=== PATIENT | female | born 1970 | race Caucasian/White ===

== ENCOUNTER 2017-08-22 08:40 | Outpatient (CLI) | payer BC ==
--- NOTE | 2017-08-23 17:07 | Mammography Report ---
DIGITAL SCREENING MAMMOGRAM: 08/22/2017 CLINICAL INDICATION: A 47-year-old nulliparous patient, for screening. COMPARISON: 05/2014. TECHNIQUE: Routine CC and MLO projections were obtained of the breasts. FINDINGS: Scattered fibroglandular tissue is present within the breasts. There are no dominant vladimir s, suspicious microcalcifications, or secondary signs of malignancy. In comparison to the previous st udies, there are no significant changes. ASSESSMENT: NO MAMMOGRAPHIC EVIDENCE OF MALIGNANCY. NO SIGNIFICANT INTERVAL CHANGES. RECOMMENDATION: Screening mammography is recommended annually. BIRADS category 1 - negative. STANDARD QUALIFYING STATEMENTS 1. This examination was reviewed with the aid of Computed-Aided Detection (CAD). 2. A negative or benign imaging report should not delay biopsy if clinically suspicious findings are present. Consider surgical consultation if warranted. More than 5% of cancers are not identified by i maging. 3. Dense breasts may obscure an underlying neoplasm. JOB #: [id number] EXT JOB #:[id number]
== END 2017-08-22 08:41 | disposition home or self-care (01) ==
LOC: DI 08:40
PROVIDERS: ATTEND Specialist
DX: Z12.31 Encounter for screening mammogram for malignant neoplasm of breast (principal)
CPT/HCPCS: 77067

== ENCOUNTER 2018-11-28 08:35 | Outpatient (CLI) | payer OTHER ==
--- NOTE | 2018-11-28 09:59 | MRI Report ---
Reason: PULSATILE TINNITUS Procedure Date: 11/28/2018 Accession Number: [id number] / [id number] Procedure: MRI - Angio Brain W/O (MRA) CPT Code: FULL RESULT: EXAM MRA BRAIN EXAM DATE: 11/28/2018 09:12 AM. CLINICAL HISTORY: Pulsatile tinnitus. COMPARISON: None. TECHNIQUE: Multiplanar, multisequence MRA sequences of the brain were performed. Other: None. Post-processing: Multiplanar 3D MIP reconstructions. IV Contrast: None. FINDINGS: Unremarkable appearance of the intradural vertebral arteries, basilar artery and visualized portions of the posterior cerebral arteries. Patent grossly symmetric distal internal carotid arteries without evidence for flow-limiting stenosis. Patent anterior communicating artery and right posterior communicating artery. No evidence for proximal flow-limiting stenosis, occlusion or filling defect of the anterior or middle cerebral arteries. No evidence for [place] aneurysm, intracranial high flow vascular malformation or abnormal arterialization of the major dural venous sinuses in the region of the posterior fossa. IMPRESSION: Unremarkable screening [place] MRA. No evidence for aneurysm or stenosis. Additional evaluation of pulsatile tinnitus could include MRI of the brain without and with contrast. If tinnitus is "objective" then additional imaging with a catheter cerebral angiography may also be considered. RADIA
== END 2018-11-28 08:36 | disposition home or self-care (01) ==
LOC: DI 08:35
PROVIDERS: ATTEND Otolaryngology
DX: H93.11 Tinnitus, right ear (principal)
CPT/HCPCS: 70544

== ENCOUNTER 2019-01-17 17:49 | Outpatient (CLI) | payer OTHER ==
--- NOTE | 2019-01-17 19:51 | MRI Report ---
Reason: TINNITUS, HEARING LOSS Procedure Date: 01/17/2019 Accession Number: [id number] / [id number] Procedure: MRI - Brain W/O CPT Code: FULL RESULT: EXAM: MRI BRAIN WITHOUT CONTRAST EXAM DATE: 01/17/2019 06:32 PM. CLINICAL HISTORY: TINNITUS, HEARING LOSS. COMPARISON: CT scan of the head without contrast 05/31/2010. TECHNIQUE: Multiplanar, multisequence T1-weighted and fluid-sensitive MR sequences of the brain were performed. Sequences optimized for routine evaluation. Other: None. IV Contrast: None. FINDINGS: The diffusion-weighted images are normal. There is no evidence of acute or subacute cerebral infarction. The T2 axial FLAIR images are normal. Cerebral volume and ventricular size are normal. The T2* sequence is normal. There is no evidence of subacute or chronic hemorrhage. The corpus callosum is of normal size and configuration. The pituitary and sella are normal. The craniocervical junction is normal. The bilateral parotid spaces exhibit normal signal intensity. There is a normal appearance of the nerve exit zone, cisternal and internal auditory canal segments of the bilateral 7th and 8th cranial nerves. There is a normal appearance of the nerve exit zone and cisternal segments of the bilateral trigeminal nerve and Meckel's cave. There are normal bony caps demonstrated over the bilateral superior semicircular canals. There is no evidence of dehiscence. IMPRESSION: 1. Normal brain MRI. There is no evidence of acute or subacute cerebral infarction, significant white matter disease, or evidence of mass. 2. There is a normal appearance of the course of the bilateral fifth, seventh, and eighth cranial nerves. There is no cerebellopontine angle mass or internal auditory canal mass or evidence of superior semicircular canal dehiscence.
== END 2019-01-17 17:50 | disposition home or self-care (01) ==
LOC: DI 17:49
PROVIDERS: ATTEND Otolaryngology
DX: H93.11 Tinnitus, right ear (principal); H91.90 Unspecified hearing loss, unspecified ear
CPT/HCPCS: 70551

== ENCOUNTER 2019-02-25 08:16 | Outpatient (CLI) | payer OTHER ==
--- NOTE | 2019-02-27 08:19 | Mammography Report ---
Reason: SCREENING MAMMO Procedure Date: 02/25/2019 Accession Number: [id number] / [id number] Procedure: LAURYN - Screening Mammo w/Puma CPT Code: FULL RESULT: EXAM: Screening Mammo w/Puma DATE: 02/25/2019 9:01 AM CLINICAL HISTORY: Routine screening. No reported personal or family history of breast cancer. TECHNIQUE: (B) - Bilateral Bilateral CC and MLO views were obtained. COMPARISON: 08/22/2017, 06/16/2014. PARENCHYMAL PATTERN: (A) - The breasts demonstrate scattered fibroglandular densities bilaterally. FINDINGS: Bilateral breasts: There are no suspicious masses, calcifications, or areas of distortion. IMPRESSION: Negative examination. BI-RADS category1 RECOMMENDATION: (ANNUAL) - Recommend routine annual screening mammography. BI-RADS CATEGORY: (1) - Negative STANDARD QUALIFYING STATEMENTS: 1. This examination was not reviewed with the aid of Computer-Aided Detection (CAD). 2. A negative or benign imaging report should not preclude biopsy if clinically suspicious findings are present. 3. Dense breasts may obscure an underlying neoplasm. 4. This examination was reviewed with the aid of 3D breast imaging (tomosynthesis).
== END 2019-02-25 08:17 | disposition home or self-care (01) ==
LOC: DI 08:16
DX: Z12.31 Encounter for screening mammogram for malignant neoplasm of breast (principal)
CPT/HCPCS: 77063; 77067

== ENCOUNTER 2019-03-09 08:14 | Outpatient (CLI) | payer OTHER ==
--- NOTE | 2019-03-10 19:40 | CT Report ---
Reason: PULSATILE TINNITUS Procedure Date: 03/09/2019 Accession Number: [id number] / [id number] Procedure: CT - IAC'S WO CPT Code: 44515 FULL RESULT: EXAM: CT TEMPORAL BONES WITHOUT CONTRAST. COMPARISON: Brain MRI, 01/17/2019. CLINICAL HISTORY: Pulsatile tinnitus. TECHNIQUE: Axial CT images were obtained through the temporal bones without contrast. Multiplanar reconstructions are created from source data. In accordance with CT protocol optimization, one or more of the following dose reduction techniques were utilized for this exam: automated exposure control, adjustment of mA and/or KV based on patient size, or use of iterative reconstructive technique. FINDINGS: Right temporal bone: Right internal carotid artery follows the usual course. Middle ear is clear. Mastoids are clear. Ossicular chain is intact. A inner ear anatomy is conventional. No pathologic enlargement of the vestibular or cochlear aqueducts. IAC is normal. No petrous apex mass. Jugular foramen is unremarkable. No mass is identified. Left temporal bone: Middle ear is clear. Mastoids are clear. Ossicular chain is intact. Inner ear anatomy is conventional. No pathologic enlargement of the vestibular or cochlear aqueducts. IAC is of normal size and shape. Left internal carotid artery follows expected course. Left jugular foramen is unremarkable. No lytic or blastic bone lesions are identified otherwise. Paranasal sinuses are relatively unremarkable. Temporomandibular nodes are normally located. Zygomatic arches are intact. No nasopharyngeal mass. IMPRESSION: Normal temporal bones.
== END 2019-03-09 08:15 | disposition home or self-care (01) ==
LOC: DI 08:14
PROVIDERS: ATTEND Student in an Organized Health Care Education/Training Program
DX: H93.A9 Pulsatile tinnitus, unspecified ear (principal)
CPT/HCPCS: 70480

== ENCOUNTER 2020-04-28 11:22 | Outpatient (CLI) | payer OTHER ==
--- NOTE | 2020-05-04 09:47 | Mammography Report ---
BILATERAL DIGITAL SCREENING MAMMOGRAM 3D/2D WITH CAD: 04/28/2020 CLINICAL: Routine screening. Comparison is made to exams dated: 02/25/2019 mammogram, 08/22/2017 mammogram, and 06/16/2014 mammogram - Merged with [facility]. The tissue of both breasts is heterogeneously dense. This may lower the sensitivity of mammography. Current study was also evaluated with a Computer Aided Detection (CAD) system. No significant masses, calcifications, or other findings are seen in either breast. There has been no significant interval change. IMPRESSION: NEGATIVE There is no mammographic evidence of malignancy. A 1 year screening mammogram is recommended. This exam was interpreted at Station ID: [id number]. NOTE: For mammograms, a report in lay terms will be sent to the patient. Approximately 15% of breast malignancies will not be visualized mammographically. In the management of a palpable breast mass, a negative mammogram must not discourage biopsy of a clinically suspicious lesion. Electronically Signed By: Helder Mobley M.D. dddonte/[email or web address]:05/01/2020 16:59:45 ACR BI-RADS Category 1: Negative 3341F PARENCHYMAL PATTERN: (D) - The breast(s) demonstrate(s) heterogeneously dense fibroglandular nisa gusman. BI-RADS CATEGORY: (1) - 1 RECOMMENDATION: (ANNUAL) - Recommend routine annual screening mammography. [id number] 1 year screening LATERALITY: (B)
== END 2020-04-28 11:23 | disposition home or self-care (01) ==
LOC: DI 11:22
DX: Z12.31 Encounter for screening mammogram for malignant neoplasm of breast (principal)
CPT/HCPCS: 77063; 77067

== ENCOUNTER 2021-05-25 07:26 | Day surgery (SDC) | payer OTHER ==
[2021-05-25] MEDS ORDERED: LACTATED RINGERS 1,000 ML IV ONE (07:53)
[2021-05-25] MEDS ORDERED: fentaNYL 250 MCG/5 ML VIAL ONE (10:11)
[2021-05-25] MEDS ORDERED: MIDAZOLAM 2 MG/2 ML VIAL ONE (10:11)
[2021-05-25 11:14] VITALS: BP 96/67
== END 2021-05-25 07:27 | disposition home or self-care (01) ==
LOC: SDS 07:26
PROVIDERS: ATTEND Surgery
DX: Z12.11 Encounter for screening for malignant neoplasm of colon (principal); K64.4 Residual hemorrhoidal skin tags; K64.8 Other hemorrhoids; K57.30 Diverticulosis of large intestine without perforation or abscess without bleeding; Z80.0 Family history of malignant neoplasm of digestive organs
CPT/HCPCS: 45378; J3010; J7120

== ENCOUNTER 2023-05-24 11:17 | Outpatient (CLI) | payer OTHER ==
--- NOTE | 2023-05-25 09:25 | Mammography Report ---
BILATERAL DIGITAL SCREENING MAMMOGRAM 3D/2D: 05/24/2023 CLINICAL: Routine screening. Comparison is made to exams dated: 05/02/2022 mammogram, 04/28/2020 mammogram, 02/25/2019 mammogram, 2016 mammogram, and 06/16/2014 mammogram - [facility]. Both breasts are almost entirely fatty (category a/<25% glandular tissue). No significant masses, calcifications, or other findings are seen in either breast. There has been no significant interval change. IMPRESSION: NEGATIVE There is no mammographic evidence of malignancy. A 1 year screening mammogram is recommended. Based on the Tyrer Cuzick model (a risk assessment model) the patients lifetime risk is 5.1% and her 10 year risk is 1.3%. According to the ACR, ACS, and NCCN guidelines, an annual breast MRI exam emerson g with mammogram is recommended if the patients lifetime risk is 20% or greater. This exam was interpreted at Station ID: [id number]. NOTE: For mammograms, a report in lay terms will be sent to the patient. Approximately 15% of breast malignancies will not be visualized mammographically. In the management of a palpable breast mass, a negative mammogram must not discourage biopsy of a clinically suspicious lesion. Electronically Signed By: Zach velasquez/suzi:05/24/2023 12:00:47 letter sent: No_Letter ACR BI-RADS Category 1: Negative 3341F PARENCHYMAL PATTERN: (F) - The breast(s) demonstrate(s) diffuse fatty replacement. BI-RADS CATEGORY: (1) - 1 Mammogram [id number] 1 year screening LATERALITY: (B)
== END 2023-05-24 11:18 | disposition home or self-care (01) ==
LOC: DI 11:17
PROVIDERS: ATTEND Nurse Practitioner
DX: Z12.31 Encounter for screening mammogram for malignant neoplasm of breast (principal)

== ENCOUNTER 2024-06-11 11:15 | Outpatient (CLI) | payer OTHER ==
--- NOTE | 2024-06-12 10:59 | Mammography Report ---
BILATERAL DIGITAL SCREENING MAMMOGRAM 3D/2D: 06/11/2024 CLINICAL: Routine screening. Comparison is made to exams dated: 05/24/2023 mammogram, 05/02/2022 mammogram, 04/28/2020 mammogram, 2018 mammogram, 08/22/2017 mammogram, and 06/16/2014 mammogram - [facility]. There are scattered areas of fibroglandular density in both breasts (category b / 25%-50% glandular t issue). No significant masses, calcifications, or other findings are seen in either breast. There has been no significant interval change. IMPRESSION: NEGATIVE There is no mammographic evidence of malignancy. A 1 year screening mammogram is recommended. Based on the Tyrer Cuzick model (a risk assessment model) the patient's lifetime risk is 7.6% and her 10 year risk is 2.2%. According to the ACR, ACS, and NCCN guidelines, an annual breast MRI exam emerson g with mammogram is recommended if the patient's lifetime risk is 20% or greater. This exam was interpreted at Station ID: [id number]. NOTE: For mammograms, a report in lay terms will be sent to the patient. Approximately 15% of breast malignancies will not be visualized mammographically. In the management of a palpable breast mass, a negative mammogram must not discourage biopsy of a clinically suspicious lesion. Electronically Signed By: Brant horne/suzi:06/11/2024 12:12:52 letter sent: No_Letter ACR BI-RADS Category 1: Negative 3341F PARENCHYMAL PATTERN: (A) - The breast(s) demonstrate(s) scattered fibroglandular densities. BI-RADS CATEGORY: (1) - 1 RECOMMENDATION: (ANNUAL) - Recommend routine annual screening mammography. [id number] 1 year screening LATERALITY: (B)
== END 2024-06-11 11:16 | disposition home or self-care (01) ==
LOC: DI 11:15
PROVIDERS: ATTEND Nurse Practitioner
DX: Z12.31 Encounter for screening mammogram for malignant neoplasm of breast (principal); R92.323 Mammographic fibroglandular density, bilateral breasts

== ENCOUNTER 2024-06-18 10:59 | Emergency (ER) | payer OTHER ==
--- NOTE | 2024-06-18 12:01 | ED Physician Documentation ---
PD HPI LOWER EXT INJURY - Stated complaint Stated Complaint: R ANKLE PAIN - Chief complaint Chief Complaint: Ext Problem - Additional information Additional information: 54-year-old female with no real significant past medical history presents emergency department for right ankle pain. Patient says that she did have ligament tears when she was 18 years old of the right ankle that did not require surgery. She said today she was walking she took a misstep and actually inversely rolled her ankle and heard a loud popping sensation to the lateral portion of her malleolus. She is able to ambulate but there is significant pain and swelling. She did not hit her head she is not on blood thinners. PD PAST MEDICAL HISTORY - Past Medical History Past Medical History: No - Past Surgical History Past Surgical History: Yes Ortho: Shoulder arthroplasty - Present Medications Home Medications: Ambulatory Orders Medication Instructions Recorded Confirmed No Known Home Medications 06/18/24 06/18/24 - Allergies Allergies/Adverse Reactions: Allergies Allergy/AdvReac Type Severity Reaction Status Date / Time No Known Drug Allergies Allergy Verified 06/18/24 11:20 - Social History Does the pt smoke?: No Smoking Status: Never smoker Does the pt have substance abuse?: No - Immunizations Immunizations are current?: Yes - POLST Patient has POLST: No PD ED PE NORMAL - Vitals Vital signs reviewed: Yes - General General: Alert and oriented X 3, No acute distress, Well developed/nourished - HEENT HEENT: Atraumatic - Extremities Extremities: Other (Right lower extremity: Tenderness and swelling to the right lateral malleolus able to flex and extend no crepitus or popping does experience significant tenderness with flexion extension to the right lateral malleolus. Achilles intact no tenderness, CMS intact, strong dorsalis pedis pulse) Results - Vitals Vitals: Vital Signs - 24 hr 06/18/24 06/18/24 11:15 13:23 Temperature 36.7 C 36.5 C Heart Rate 57 L 60 Respiratory 18 16 Rate Blood Pressure 145/94 H 130/88 H O2 Saturation 98 100 Oxygen O2 Source Room air - Rads (name of study) Right ankle x-rays Relevant Findings:: Final report received, EMP independent interpretation of test, Other (Avulsion fracture fragment seen at the tip of the lateral malleolus with soft tissue swelling) PD Medical Decision Making - ED course ED course: 54-year-old female presents emergency department for right lateral malleolus pain and tenderness after ground-level fall. X-rays are complete and there appears to be a few small avulsion fracture fragments from the tip of the lateral malleolus. patient placed in a walking boot crutches given to patient she was told to follow-up with Ortho outpatient. She was given Tylenol ibuprofen for pain and discomfort here in the ER all questions answered patient safe for discharge return precautions given. 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 COMPARISON: None. FINDINGS: Bones: There are a few small avulsion fracture fragments from the tip of the lateral malleolus. Mild underlying degenerative changes also present. Soft tissues: Soft tissue swelling is present, particularly at the lateral aspect. IMPRESSION: Avulsion small fracture fragments seen at the tip of the lateral malleolus. Soft tissue swelling is present. Reviewed by: Brant Stratton MD on 06/18/2024 12:33 PM PDT Forms: PCP List Discharge Date/Time: 06/18/24 13:23
--- NOTE | 2024-06-18 12:35 | XRAY Report ---
PROCEDURE: Ankle 3+V RT INDICATIONS: fall and trip over curb TECHNIQUE: 3 views of the ankle were acquired. COMPARISON: None. FINDINGS: Bones: There are a few small avulsion fracture fragments from the tip of the lateral malleolus. Mild underly ing degenerative changes also present. Soft tissues: Soft tissue swelling is present, particularly at the lateral aspect. IMPRESSION: Avulsion small fracture fragments seen at the tip of the lateral malleolus. Soft tissue swelling is p resent. Reviewed by: Brant Stratton MD on 06/18/2024 12:33 PM PDT Approved by: Brant Stratton MD on 06/18/2024 12:33 PM PDT Station ID: [id number]
[2024-06-18] MEDS: ACETAMINOPHEN 500 MG TABLET PO STA (13:07)
[2024-06-18] MEDS: KETOROLAC 30 MG/ML VIAL IM STA (13:08)
[2024-06-18 13:38] VITALS: BP 130/88; O2SAT 100
== END 2024-06-18 13:23 | disposition home or self-care (01) ==
LOC: ED 10:59
DX: S82.892A Other fracture of left lower leg, initial encounter for closed fracture (principal); X50.1XXA Overexertion from prolonged static or awkward postures, initial encounter
CPT/HCPCS: 73610; 96372; 99283; A9270

== ENCOUNTER 2024-07-30 09:32 | Outpatient (CLI) | payer OTHER ==
--- NOTE | 2024-07-30 21:13 | XRAY Report ---
PROCEDURE: Ankle 3+V RT INDICATIONS: NONDISPLACED FX LATERAL MALLEOLUS R FIBULA TECHNIQUE: 3 views of the ankle were acquired. COMPARISON: 06/18/2024. FINDINGS: Bones: Lateral malleolus avulsion fracture is not as well appreciated. Ankle mortise is normally al igned. No suspicious bony lesions. Soft tissues: No tibiotalar joint effusion. Achilles tendon appears normal. IMPRESSION: Lateral malleolus avulsion fracture is not as well appreciated, possibly secondary to healing. Reviewed by: Kalpesh Ivan MD on 07/30/2024 9:11 PM PDT Approved by: Kalpesh Ivan MD on 07/30/2024 9:11 PM PDT Station ID: [id number]
== END 2024-07-30 09:33 | disposition home or self-care (01) ==
LOC: DI 09:32
PROVIDERS: ATTEND Orthopaedic Surgery
DX: S82.64XA Nondisplaced fracture of lateral malleolus of right fibula, initial encounter for closed fracture (principal)

== ENCOUNTER 2025-10-14 06:16 | Observation (INO) ==
--- OUTSIDE RECORDS SUMMARY | 2025-10-14 06:38 | EXTERNAL MEDICAL SUMMARY RPT | Continuity of Care Document ---
Author Organization [facility] Address [address] [place] [id number] Phone Problems date description facility 2025-07-16 11:07 Pain in right ankle and joints of right foot [facility] 2025-07-18 11:11 Other specified cond itions associated with female genital organs and menstrual cycle [facility] 2025-07-18 12:23 Other specified cond itions associated with female genital organs and menstrual cycle [facility] 2025-07-21 08:08 Other specified cond itions associated with female genital organs and menstrual cycle [facility] 2025-07-21 08:08 Other specified pers onal risk factors, not elsewhere classified [email or web address] 2025-07-31 15:05 Other specified cond itions associated with female genital organs and menstrual cycle [facility] 2025-07-31 15:06 Other specified cond itions associated with female genital organs and menstrual cycle [facility] 2025-08-06 09:02 Other specified cond itions associated with female genital organs and menstrual cycle [facility] 2025-08-07 00:02 Other specified cond itions associated with female genital organs and menstrual cycle [facility] 2025-09-04 09:58 Other specified cond itions associated with female genital organs and menstrual cycle [email or web address] 2025-09-04 09:58 Encounter for genera l adult medical examination without abnormal findings [facility] 2025-09-04 09:58 Encounter for screen ing mammogram for malignant neoplasm of breast [email or web address] 2025-09-04 09:58 Encounter for other screening for malignant neoplasm of breast [email or web address] 2025-09-04 09:58 Encounter for screening for nut ritional disorder [facility] 2025-09-05 04:38 Encounter for screen ing mammogram for malignant neoplasm of breast [email or web address] 2025-09-05 04:38 Encounter for other screening for malignant neoplasm of breast [email or web address] 2025-09-08 09:34 Encounter for screen ing mammogram for malignant neoplasm of breast [facility] 2025-09-08 09:34 Encounter for other screening for malignant neoplasm of breast [facility] 2025-09-10 00:04 Other specified cond itions associated with female genital organs and menstrual cycle [facility] 2025-09-10 00:04 Encounter for genera l adult medical examination without abnormal findings [email or web address] 2025-09-10 00:04 Encounter for screening for nut ritional disorder [facility] 2025-09-10 07:22 Encounter for genera l adult medical examination without abnormal findings [facility] 2025-09-12 23:14 Encounter for antibody response examination [facility] 2025-09-13 00:04 Encounter for antibody response examination [facility] 2025-09-16 10:44 Encounter for screen ing mammogram for malignant neoplasm of breast [facility] 2025-09-16 10:44 Encounter for other screening for malignant neoplasm of breast [facility] 2025-09-17 08:01 Encounter for antibody response examination [facility] 2025-10-06 07:52 Encounter for antibody response examination [facility] 2025-10-06 07:53 Encounter for antibody response examination [facility] Results/Labs test date facility value unit notes Result panel 1 NUCLEATED RED BLOOD CELLS AUTO 2025-09-09 10:03 [facility] 0.0 /100wbc (missing) NRBC ABSOLUTE COUNT (AUTO) 2025-09-09 10:03 [facility] 0.00 x10 3/ul (missing) BASOPHILS # (AUTO) 2025-09-09 10:03 [facility] 0.1 10 3/ul (missing) EOSINOPHILS # (AUTO) 2025-09-09 10:03 [facility] 0.1 10 3/ul (missing) BILIRUBIN,TOTAL 2025-09-09 10:03 [facility] 0.6 mg/dl As of May 2023 testing method has changed, this may include reference ranges. MONOCYTES # (AUTO) 2025-09-09 10:03 [facility] 0.8 10 3/ul (missing) CREATININE 2025-09-09 10:03 [facility] 0.8 mg/dl As of May 2023 testing method has changed, this may include reference ranges. ALBUMIN/GLOBULIN RATIO 2025-09-09 10:03 [facility] 1.5 (missing) (missing) NEUTROPHILS # (AUTO) 2025-09-09 10:03 [facility] 1.5 10 3/ul (missing) LYMPHOCYTES # (AUTO) 2025-09-09 10:03 [facility] 1.6 10 3/ul (missing) LDL/HDL RATIO 2025-09-09 10:03 [facility] 1.9 (missing) (missing) BUN - BLOOD UREA NITROGEN 2025-09-09 10:03 [facility] 10 mg/dl As of May 2023 testing method has changed, this may include reference ranges. CHLORIDE 2025-09-09 10:03 [facility] 102 mmol/l As of May 2023 testing method has changed, this may include reference ranges. ESTIMATED AVERAGE GLUCOSE 2025-09-09 10:03 [facility] 108 mg/dl (missing) LDL CHOLESTEROL,CALCULATED 2025-09-09 10:03 [facility] 117 mg/dl LDLD REFERENCE RANGE AND CARDIOVASCULAR RISK: <130 mg/dL Desirable 130-159 mg/dL Borderline High Risk >160 mg/dL High Risk MEAN PLATELET VOLUME 2025-09-09 10:03 [facility] 12.2 fl (missing) RED CELL DISTRIBUTION WIDTH 2025-09-09 10:03 [facility] 12.6 % (missing) HGB - HEMOGLOBIN 2025-09-09 10:03 [facility] 13.6 g/dl (missing) SODIUM 2025-09-09 10:03 [facility] 138 mmol/l Unknown VLDL CHOLESTEROL 2025-09-09 10:03 [facility] 16 mg/dl (missing) CHOLESTEROL 2025-09-09 10:03 [facility] 195 mg/dl Total Cholesterol Risk Classification Cholesterol Level Risk Classification <200 mg/dL Desirable 200-239 mg/dL Borderline High >240 mg/dL High As of May 2023 testing method has changed, this may include reference ranges. THYROID STIMULATING HORMONE 2025-09-09 10:03 [facility] 2.32 uiu/ml (missing) ALT ALANINE AMINOTRANSFERASE 2025-09-09 10:03 [facility] 21 iu/l As of May 2023 testing method has changed, this may include reference ranges. VITAMIN D 25-HYDROXY 2025-09-09 10:03 [facility] 21.4 ng/ml Vitamin D deficiency has been defined by the [place] of [employer] and an Endocrine Society practice guideline as a level of serum 25-OH vitamin D less than 20 ng/mL (1,2). The Endocrine Society went on to further define vitamin D insufficiency as a level between 21 and 29 ng/mL (2). 1. IOM ([place] of [employer]). 2010. Dietary reference intakes for calcium and D. [place]: The National Academies Press. 2. Axel MF, Jose Armando SONI, Elodia KHOURY, et al. Evaluation, treatment, and prevention of vitamin D deficiency: an Endocrine Society clinical practice guideline. JCEM. 2010; 96(7):1911-30. Performed at: - [facility] [id number] Research Associate Professor: Helder Jackson MD, Phone: [phone] PLT - PLATELET COUNT 2025-09-09 10:03 [facility] 232 10 3/ul (missing) MEAN CORPUSCULAR HEMOGLOBIN 2025-09-09 10:03 [facility] 29.3 pg (missing) GLOBULIN 2025-09-09 10:03 [facility] 3.0 g/dl (missing) CHOL/HDL RATIO 2025-09-09 10:03 [facility] 3.1 (missing) NATIONAL CHOLESTEROL GUIDELINE [facility] ([facility]) guidelines for classificaton, testing and management of cholesterol levels in adults over 20 years of age. This new classification creates three categories of risk for coronary heart disease, regardless of age or sex, according to total amd LDL cholesterols levels: Based on total cholesterol level Desirable <200 mg/dl Borderline-high 200-239 mg/dl High >=240 mg/dl Based on cholesterol ratio CHD RISK CHOL/HDL RATIO --- MALE FEMALE 0.5 x Average 3.4 3.3 1.0 x Average 5.0 4.4 2.0 x Average 9.6 7.1 3.0 x Average 13.5 11.0 CARBON DIOXIDE - CO2 2025-09-09 10:03 [facility] 30 mmol/l As of May 2023 testing method has changed, this may include reference ranges. AST ASPARTATE AMINOTRANSFERASE 2025-09-09 10:03 [facility] 32 iu/l As of May 2023 testing method has changed, this may include reference ranges. MEAN CORPUSCULAR HGB CONC 2025-09-09 10:03 [facility] 32.7 g/dl (missing) WHITE BLOOD COUNT 2025-09-09 10:03 [facility] 4.0 x10 3/ul (missing) POTASSIUM 2025-09-09 10:03 [facility] 4.2 mmol/l As of May 2023 testing method has changed, this may include reference ranges. ALBUMIN 2025-09-09 10:03 [facility] 4.5 g/dl As of May 2023 testing method has changed, this may include reference ranges. RED BLOOD COUNT 2025-09-09 10:03 [facility] 4.64 10 6/ul (missing) HCT - HEMATOCRIT 2025-09-09 10:03 [facility] 41.6 % (missing) HEMOGLOBIN A1c% 2025-09-09 10:03 [facility] 5.4 % The [place] Diabetes Association (ADA) has made the following recommendations: Monitoring HbA1c in Diabetic Patients: A1c (NGSP%) Goal <8 Less Stringent Goal <7 General Goal <6.5 More Stringent Goal Diagnosis of Diabetes: A1c (NGSP%) Goal >6.5 Diabetic 5.7-6.4 Pre-Diabetic <5.7 Non-Diabetic ANION GAP 2025-09-09 10:03 [facility] 6.0 (missing) (missing) HDL CHOLESTEROL 2025-09-09 10:03 [facility] 62 mg/dl Coronary Heart Disease Risk Classification HDL Level Risk factor < 40 mg/dL major risk > 60 mg/dL negative risk As of May 2023 testing method has changed, this may include reference ranges. TOTAL PROTEIN 2025-09-09 10:03 [facility] 7.5 g/dl As of May 2023 testing method has changed, this may include reference ranges. ALKALINE PHOSPHATASE 2025-09-09 10:03 [facility] 70 iu/l As of May 2023 testing method has changed, this may include reference ranges. GFR - MDRD 2025-09-09 10:03 [facility] 74 (missing) The IDMS-traceable MDRD Study Equation has been validated extensively in and populations between the ages of 18 and 70 with impaired kidney function (eGFR < 60 mL/min/1.73m2) and has shown good performance for patients with all common causes of kidney disease. Although this equation has not been validated for patients older than 70, an MDRD-derived eGFR may still be a useful tool for providers caring for patients older than 70. References: http://www.nkdep.ni h.gov/lab-evaluatio n/gfr/creatinine-st and ardization, last updated January 2012. TRIGLYCERIDES 2025-09-09 10:03 [facility] 82 mg/dl Unknown Triglyceride Risk Classification <150 mg/dL Normal 150-199 mg/dL Borderline High 200-499 mg/dL High >500 mg/dL Very High As of May 2023 testing method has changed, this may include reference ranges. GLUCOSE 2025-09-09 10:03 [facility] 88 mg/dl As of May 2023 testing method has changed, this may include reference ranges. MEAN CORPUSCULAR VOLUME 2025-09-09 10:03 [facility] 89.7 fl (missing) CALCIUM 2025-09-09 10:03 [facility] 9.9 mg/dl As of May 2023 testing method has changed, this may include reference ranges. Result panel 2 UROBILINOGEN,URINE 2025-09-09 10:18 [facility] 0.2 (NORMAL) e.u./dl (missing) SPECIFIC GRAVITY,URINE 2025-09-09 10:18 [facility] 1.010 (missing) (missing) WBC,URINE 2025-09-09 10:18 [facility] 6-10 /hpf (missing) PH,URINE 2025-09-09 10:18 [facility] 7.0 ph (missing) CLARITY,URINE 2025-09-09 10:18 [facility] CLEAR (missing) (missing) CUL, URINE 2025-09-09 10:18 [facility] CXPCULTURE IN PROGRESS. RESULTS TO FOLLOW. (missing) (missing) BACTERIA,URINE 2025-09-09 10:18 [facility] Few /hpf (missing) UR CULTURE IF IND 2025-09-09 10:18 [facility] INDICATED (missing) (missing) URINE MICROSCOPIC INDICATED? 2025-09-09 10:18 [facility] INDICATED (missing) (missing) LEUKOCYTE ESTERASE, URINE 2025-09-09 10: [facility] MODERATE (missing) (missing) NITRITE,URINE 2025-09-09 10:18 [facility] NEGATIVE (missing) (missing) OCCULT BLOOD,URINE 2025-09-09 10:18 [facility] NEGATIVE (missing) (missing) BILIRUBIN,URINE 2025-09-09 10:18 [facility] NEGATIVE (missing) Bilirubin can be influenced by color interference. Please correlate positive results with clinical presentation GLUCOSE, URINE (UA) 2025-09-09 10:18 [facility] NEGATIVE mg/dl (missing) KETONES,URINE (UA) 2025-09-09 10:18 [facility] NEGATIVE mg/dl (missing) PROTEIN,URINE 2025-09-09 10:18 [facility] NEGATIVE mg/dl (missing) CUL, URINE 2025-09-09 10:18 [facility] NGNo growth (missing) (missing) RBC,URINE 2025-09-09 10:18 [facility] None Seen /hpf (missing) SQUAMOUS EPITHELIAL CELL,UR 2025-09-09 10:18 [facility] RARE Squamous (missing) (missing) COLOR,URINE 2025-09-09 10:18 [facility] YELLOW (missing) URINE RANDOM Result panel 3 HEPATITIS B SURFACE AB QUANT 2025-09-09 11:00 [facility]ending [facility] (missing) (missing) Hepatitis B Surf Ab Quant Result: <3.5 Low mIU/mL Referecnce Interval: Immunity>10 Status of Immunity Anti-HBs Level Inconsistent with Immunity 0.0 - 10.0 Consistent with Immunity >10.0 Performing Labs 01: SE - [facility] [address] [id number] Dir: Helder Jackson MD For inquiries, the physician may contact Branch: [phone] Lab: [phone] Social History date description facility
[2025-10-14] MEDS: HYDROmorphone 1 MG/ML CARPUJECT IVP STA ×2 (06:44→07:55)
[2025-10-14] MEDS: ONDANSETRON 4 MG/2 ML VIAL IVP STA (06:44)
--- NOTE | 2025-10-14 06:57 | ED Physician Documentation ---
History of Present Illness Stated complaint Stated Complaint: ABD PX Chief complaint Chief Complaint: Abd Pain Additonal information Additional information: Patient is a previously healthy 55-year-old female who presents today after she was woken up at about 4 AM due to onset of abdominal pain. She states that the pain has slowly intensified since then and radiates to her back. She describes pain that radiates under bilateral rib margins. She rates her pain as intense, and is nauseous and actively vomiting in the room. She states that she has never had symptoms like this before. Denies previous history of intra-abdominal surgery. She denies any fever, chills, headache, visual changes, chest pain, shortness of breath. She denies any recent bowel movement changes or urination changes. Patient is otherwise limited in conversation secondary to symptoms. Review of Systems Status of ROS: See HPI Meds/Allgy Home Medications Ambulatory Orders Medication Instructions Recorded Confirmed No Known Home Medications 06/18/2409/27 Allergies Allergies Allergy/AdvReac Type Severity Reaction Status Date / Time No Known Drug Allergies Allergy Verified 09/04/25 07:59 PFSH Active Problems All Active Problems (Updated 10/14/25 @ 07:56 by Rocky Lorenzo MD) Pancreatitis (Acute) Antibody response exam (Acute) Encounter for vitamin deficiency screening (Acute) Screening for colorectal cancer (Acute) Nevus (Acute) Family history of early menopause (Acute) Immunization counseling (Acute) Uterine cramping (Acute) Healthy adult on routine physical examination (Acute) Abnormal auditory perception, unspecified (Acute) Headache (Acute) Raynauds disease (Acute) Eustachian tube dysfunction (Acute) Screening for hyperlipidemia (Acute) Screening for thyroid disorder (Acute) Examination (Acute) Encounter for gynecological examination (general) (routine) with abnormal findings (Acute) Screening mammogram for breast cancer (Acute) Screening for malignant neoplasm of cervix (Acute) Nondisplaced fracture of lateral malleolus of right fibula (Acute) Encounter for screening for cervical cancer (Acute) Ureterolithiasis (Acute) Surgical History Surgical History H/O shoulder surgery right Family History Family History Father CVA (cerebral vascular accident) Maternal grandmother High blood pressure Aunt Colon cancer Social History Social History (Updated 09/04/25 @ 08:01 by Zaida Yeager MA) Smoking Status: Never smoker Second hand tobacco smoke exposure: Yes (current) Do you dip or chew tobacco?: No Do you vape?: No Do you feel safe in your home environment?: Yes History of physical, verbal, emotional, or financial abuse?: No ETOH Use: Wine Frequency: Weekly Number of days/week: 1 Substance Use: denies use POLST Patient has POLST: No Exam Exam Vital Signs: Vital Signs x48h Temp Pulse Resp BP Pulse Ox 10/14/25 06:18 36.7 C 89 23 134/74 H 98 Constitutional Sitting up in examination bed, appears uncomfortable. Baseline tremor noted. Actively vomiting. HENMT normocephalic Eyes conjunctivae normal Neck/C-Spine supple Respiratory breath sounds equal bilaterally, normal respiratory effort, clear to auscultation bilaterally and no wheezes Cardiovascular normal heart rate noted, regular rhythm noted, no murmur and peripheral pulses 2+ throughout Gastrointestinal Significant tenderness palpation epigastric region, as well as right upper quadrant and left upper quadrant. CVA tenderness bilaterally is present. Guarding is present. Rebound tenderness is present. No rigidity. Neurology inclusion paraeducator II-XII intact and GCS 15 Psychiatry mental status grossly normal and oriented x3 Skin skin color normal Results Vitals Vitals: Vital Signs - 24 hr 10/14/25 06:18 10/14/25 06:44 Temperature 36.7 C Temperature Source Tympanic Pulse Rate 89 Respiratory Rate 23 Blood Pressure 134/74 H O2 Saturation 98 O2 Source Room air Pain Intensity 8 7 Oxygen O2 Source Room air Labs Labs: Laboratory Tests 10/14/25 06:46 WBC 7.5 RBC 4.51 Hgb 13.2 Hct 40.1 MCV 88.9 MCH 29.3 MCHC 32.9 RDW 13.0 Plt Count 256 MPV 11.6 H Neut # (Auto) 3.8 Lymph # (Auto) 2.9 Bacon # (Auto) 0.7 Eos # (Auto) 0.1 Baso # (Auto) 0.0 Absolute Nucleated RBC 0.00 Nucleated RBC % 0.0 Sodium 139 Potassium 3.3 L Chloride 102 Carbon Dioxide 28 Anion Gap 9.0 BUN 16 Creatinine 0.7 Estimated GFR (MDRD) 87 L Glucose 158 H Lactic Acid 1.8 Calcium 9.6 Total Bilirubin 1.0 AST 21 ALT 12 Alkaline Phosphatase 86 Total Protein 7.2 Albumin 4.4 Globulin 2.8 Albumin/Globulin Ratio 1.6 Lipase 1261 H PD Medical Decision Making ED course ED course: Assessment: Patient is a previously healthy 55-year-old female who woke this morning at roughly 4 AM with sudden onset of significant epigastric pain that is radiating to her back. Also significantly nauseous, and vomiting in the ER. No hematemesis, no coffee-ground emesis. She denies any previous history of similar symptoms. My history taking of this patient who showed up shortly before the end of my shift was somewhat limited given her symptoms. My daytime relief, Dr. Misael Mills will ask further questions of patient after patient's nausea and pain is better controlled. DDx: Includes but not limited to, gastritis, peptic ulcer disease, gastric ulcer disease, gastroenteritis, pancreatitis, cholecystitis, choledocholithiasis, thoracic aortic aneurysm, thoracic aortic dissection, ischemic bowel, perforated colon, perforated small bowel, small bowel obstruction, ischemic bowel, etc. Workup: CBC unremarkable. CMP with mildly low potassium 3.3. Otherwise relatively unremarkable. Lipase is 1261. At time of my signout CTA chest and abdomen is pending. Treatment: Dilaudid, Zofran. Discussion: Patient has still yet to go to imaging prior to my signout, and I had concern given her history initiall for possible thoracic dissection. However, this concern is now somewhat tempered given her lipase result which is severely elevated and is suggestive of pancreatitis. Pancreatitis does fit her clinical picture. When I initially evaluated her I was not able to perform extensive history taking, secondary to patient's , symptoms/active vomiting. Unknown to me whether or not this patient does have a previous history of pancreatitis, significant alcohol use, history of biliary disease, etc. Patient will be followed up on by daytime physician Dr. Misael Mills. For further details of this patient's care completed after my shift please refer to his note. Disposition: ER, awaiting imaging, further evaluation. Discharge Plan Discharge Condition: Stable Clinical Impression: Pancreatitis Prescriptions: No Action No Known Home Medications Print Language: Greek Stand Alone Forms: PCP List
[2025-10-14 07:06] LABS: ALT ALANINE AMINOTRANSFERASE 12.0 IU/L (10-60); AST ASPARTATE AMINOTRANSFERASE 21.0 IU/L (10-42); BUN - BLOOD UREA NITROGEN 16.0 mg/dL (6-20); CARBON DIOXIDE - CO2 28.0 mmol/L (21-32); CREATININE 0.7 mg/dL (0.6-1.3); GFR - MDRD 87.0 (>89)
[2025-10-14 07:16] LABS: HCT - HEMATOCRIT 40.1 % (37.0-47.0); HGB - HEMOGLOBIN 13.2 g/dL (12.0-16.0); MEAN PLATELET VOLUME 11.6 fL (7.9-10.8); NRBC ABSOLUTE COUNT (AUTO) 0.00 x10^3/uL; NUCLEATED RED BLOOD CELLS AUTO 0.0 /100WBC; PLT - PLATELET COUNT 256 10^3/uL (130-450); RED CELL DISTRIBUTION WIDTH 13.0 % (12.0-15.0)
--- NOTE | 2025-10-14 08:15 | ED Physician Documentation ---
ED Addendum Addendum Addendum: Patient was signed out to me by Dr. Lorenzo, see his note for full H&P, briefly this is a 55-year-old female with epigastric abdominal pain radiating to the back. Started this morning. Her lipase is significantly elevated. Consistent with pancreatitis. She states that she occasionally drinks wine. Does not take any medications at home. No history of gallstones. Nothing makes it better or worse. She states her nausea improved with Zofran but the 0.5 mg Dilaudid did not help her pain. More pain medication ordered. Her CT imaging was changed to an abdomen pelvis with contrast. No chest pain. No shortness of breath. Not concerned about aortic dissection at this time. CT scan is consistent with pancreatitis as well. Ultrasound does not show any acute abnormalities of the gallbladder or gallstones. Pain improved with multiple doses of Dilaudid. Still having some nausea. Attempted to drink and still has pain. Given the significant peripancreatic edema, continued pain, will admit to the hospitalist service for bowel rest, pain control. Discussed the case with Dr. Prince, hospitalist who accepts This document was made in part using voice recognition software. While efforts are made to proofread this document, sound alike and grammatical errors may occ ur. Discharge Plan Discharge Patient Disposition: [facility] DC/Xfer Condition: Stable Clinical Impression: Pancreatitis Qualifiers: Chronicity: acute Pancreatitis type: unspecified pancreatitis type Acute pancreatitis complication: no infection or necrosis Qualified Code(s): K85.90 - Acute pancreatitis without necrosis or infection, unspecified Interventions: ED Admission Assessment Last Done: 10/14/25 09:55 Vitals documented within 30 minutes of discharge?: Yes
[2025-10-14 08:23] LABS: ETOH - ETHANOL < 10.0 mg/dL
[2025-10-14] MEDS: SODIUM CHLORIDE 0.9% 1,000 ML IV STA ×2 (08:51→11:37)
--- NOTE | 2025-10-14 08:59 | CT Report ---
PROCEDURE: CT Abdomen/Pelvis W INDICATIONS: abdominal pain, pancreatitis CONTRAST: 100ml omni 300 TECHNIQUE: After the administration of intravenous contrast, a CT scan of the abdomen and pelvis was performed. Images were recorded and evaluated at appropriate window settings. Reformats: coronal and sagittal. For radiation dose reduction, the following was used: automated exposure control, adjustment of mA and/or kV according to patient size. COMPARISON: Ultrasound pelvis 08/06/2025, CT abdomen/pelvis 01/12/15 FINDINGS: Image quality: Diagnostic. Lower chest: Unremarkable. Liver: No solid mass. Gallbladder: Unremarkable. Biliary tree: No intrahepatic or extrahepatic dilation, accounting for age. Spleen: No splenomegaly. Pancreas: No pancreatic ductal dilation. Pancreatic edema with peripancreatic medial everyone stranding as well as fluid is present. No organized fluid collection. Adrenals: No adrenal nodule. Kidneys and ureters: No hydronephrosis. No renal cystic lesion which requires follow up. No solid mass. Stomach, bowel and peritoneum: No gastric or small bowel dilation. No abnormal wall thickening. No pathologic free fluid. Lymph nodes: No central or retroperitoneal adenopathy. Vessels: No infrarenal aortic aneurysm. Patent portal vein. PELVIS Reproductive organs: Unremarkable. Bladder: No abnormal wall thickening. Pelvic lymph nodes: No pelvic adenopathy by size criteria. Bones: No aggressive osseous abnormality. Other: No significant ventral or inguinal hernia. IMPRESSION: Peripancreatic edema and fluid most consistent with pancreatitis. No organized fluid collection suggest pseudocyst Reviewed by: Maggie Marsh MD on 10/14/2025 8:56 AM [facility] Approved by: Maggie Marsh MD on 10/14/2025 8:56 AM PST Station ID: [id number]
--- NOTE | 2025-10-14 09:08 | Ultrasound Report ---
PROCEDURE: US Abdomen Limited INDICATIONS: pancreatitis TECHNIQUE: Real-time focused scanning was performed of the abdomen, with image documentation. COMPARISONS: 10/14/2021 MRI of FINDINGS: Liver: Liver is normal in size and homogeneous in echotexture. Gallbladder: No gallstones, sludge, wall thickening or pericholecystic edema. Biliary ducts: Intrahepatic bile ducts are non-dilated. Extrahepatic bile duct caliber measures mm. Normal is 6-7 mm or less in diameter, or 10 mm or less post-cholecystectomy. Pancreas: Trace fluid surrounding the pancreas with mild enlargement. Findings correlate with CT. Right kidney: Normal in size and echotexture. Right kidney measures cm long. No hydronephrosis or nephrolithiasis. No solid masses. No complex renal cystic lesions which require follow-up. IVC: Intrahepatic inferior vena cava is patent. Miscellaneous: No free abdominal fluid. IMPRESSION: Trace fluid surrounding the pancreas. Findings correlate with CT appearasnce of pancreatitis.. Reviewed by: Maggie Marsh MD on 10/14/2025 9:05 AM [facility] Approved by: Maggie Marsh MD on 10/14/2025 9:05 AM PST Station ID: [id number]
--- NOTE | 2025-10-14 09:22 | HISTORY & PHYSICAL EXAMINATION ---
Chief Complaint Chief Complaint Chief Complaint: Abdominal pain History of Present Illness Admitted From Admitted From:: Home History Obtained From Records Reviewed: EMR History obtained from: Patient Exam Limitations: None History of Present Illness HPI Comment/Other: Patient is a 55-year-old female with no past medical history who presents for abdominal pain. Pt endorses 8-6/10 "crampy" abd pain since 444 today, pain improved by standing, and provocation by straining, as in bowel movement. Pn related to radiate to back, and steady pain since 444 with slight improvement to 6/10 with [place] 10/325 x1 dose and nausea better controlled with ondansetron x1 4mg IV. She had two episodes of emesis which she described as non-bilious, non-bloody. She is having difficulty taking deep breaths due to pain. She has had no constipation, no diarrhea. She is passing gas. She has no history of cholelithiasis. She endorses no past medical history. 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 She had early menopause, and a history of ovarian cysts, and abnormal PAPs. She takes no medications. She takes no over the counter supplements. Allergies: Pt denies any allergies to medications, food, OTC, or environmental factors. Surgical history includes R shoulder surgery and ovarian cyst removal. She denies any alcohol, tobacco, recreational drug use. 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 She does have some environmental exposure to chemical irritants, including Windex. She drinks alcohol once a week. She describes this as a glass of wine weekly. Meds/Allgy Home Medications Ambulatory Orders Medication Instructions Recorded Confirmed No Known Home Medications 06/18/2409/27 Allergies Allergies Allergy/AdvReac Type Severity Reaction Status Date / Time No Known Drug Allergies Allergy Verified 09/04/25 07:59 PFSH Active Problems All Active Problems (Updated 10/14/25 @ 15:39 by Julee Garcia MD) Hypokalemia (Acute) Acute abdominal pain (Acute) Pancreatitis (Acute) Antibody response exam (Acute) Encounter for vitamin deficiency screening (Acute) Screening for colorectal cancer (Acute) Nevus (Acute) Family history of early menopause (Acute) Immunization counseling (Acute) Uterine cramping (Acute) Healthy adult on routine physical examination (Acute) Abnormal auditory perception, unspecified (Acute) Headache (Acute) Raynauds disease (Acute) Eustachian tube dysfunction (Acute) Screening for hyperlipidemia (Acute) Screening for thyroid disorder (Acute) Examination (Acute) Encounter for gynecological examination (general) (routine) with abnormal findings (Acute) Screening mammogram for breast cancer (Acute) Screening for malignant neoplasm of cervix (Acute) Nondisplaced fracture of lateral malleolus of right fibula (Acute) Encounter for screening for cervical cancer (Acute) Ureterolithiasis (Acute) Surgical History Surgical History H/O shoulder surgery right Family History Family History Father CVA (cerebral vascular accident) Maternal grandmother High blood pressure Aunt Colon cancer Social History Social History (Updated 09/04/25 @ 08:01 by Zaida Yeager MA) Smoking Status: Never smoker Second hand tobacco smoke exposure: Yes (current) Do you dip or chew tobacco?: No Do you vape?: No Level: Independent Do you feel safe in your home environment?: Yes History of physical, verbal, emotional, or financial abuse?: No ETOH Use: Wine Frequency: Weekly Number of days/week: 1 Substance Use: denies use POLST Patient has POLST: No POLST on file?: No POLST CPR Status: Attempt Resuscitation (CPR) Level of Medical Intervention: Full Treatment Review of Systems Constitutional Reports: Diaphoresis and Changes in appetite or eating habits Cardiovascular Reports: shortness of breath with exertion (Shortness of breath, but due to pain restriction of full inspiration) Respiratory Reports: Shortness of breath (Shortness of breath, but due to pain restriction of full inspiration) Gastrointestinal Reports: Abdominal pain, Nausea, Vomiting and Poor appetite Genitourinary Denies: Painful urination, Urinary frequency or Urinary incontinence Prior Level of Functionality: Independent of ADLs. Exam Exam Vital Signs: Vital Signs x48h Temp Pulse Pulse Resp BP BP Pulse Ox 10/14/25 12:23 97.3 F L 67 20 141/83 H 100 10/14/25 10:00 97.2 F L 58 L 16 158/78 H 100 10/14/25 09:55 96.8 F L 65 16 144/83 H 94 10/14/25 08:55 50 L 16 126/84 97 Constitutional normal general appearance [facility] normocephalic Eyes PERRL Neck/C-Spine visual inspection normal Respiratory breath sounds equal bilaterally, normal respiratory effort, clear to auscultation bilaterally, no wheezes, no rales and no retractions Full inspiration painful, no adventition on auscultation Cardiovascular normal heart rate noted, regular rhythm noted, no gallop, no rub, no murmur, no JVD, no clicks, no bruits noted and no additional abnormal heart sounds Gastrointestinal abdomen abnormal to inspection, tender to palpation, nondistended, abnormal bowel sounds noted (hypoactive bowel sounds), no hepatosplenomegaly, no masses, no pulsatile mass, no ascites and no hernia Positive De La Rosa, negative obturator/psoas/Rovsing/McBurney. Pain to plapation endorsed at epigastric, LUQ, LLQ, no rebound tenderness. Genitourinary no CVA tenderness and external appearance normal Extremities normal to inspection and normal to palpation Skin skin color normal, no rash, no lesions and no jaundice Conclusion/Plan Problem List (1) Pancreatitis: Qualifiers: Acute pancreatitis complication: no infection or necrosis Chronicity: a cute Pancreatitis type: unspecified pancreatitis type Qualified Code(s): K 85.90 - Acute pancreatitis without necrosis or infection, unspecified (2) Acute abdominal pain: Plan: - The following assessment is for the above two diagnoses: Patient presents with typical abdominal pain with radiation to back. Lipase elevated at 1261. CT abdomen showed Peripancreatic edema and fluid most consistent with pancreatitis. - US abdomen completed with no distension or stones noted. ALT, AST, bilirubin within normal limits. Will trend AM. Patient denies excessive EtOH use. EtOH level negative. No supplements or medications. Triglycerides within normal limits. - Bowel rest with strict NPO status at this time. Sips, chips, medications okay. - Analgesia with Tylenol for mild pain, [place] for moderate pain, morphine for severe pain. - Nausea management with Zofran as needed. - Less likely gallbladder pancreatitis, alcholic pancreatitis. Less likely autoimmune pancreatitis as well but IgG4 levels ordered. Likely idiopathic pancreatitis. (3) Hypokalemia: Plan: - Likely due to GI losses. Continue replacement, continue to trend. Lab Results Lab results reviewed: Yes 10/14/25 06:46 10/14/25 06:46 Diagnostic Imaging Results Diagnostic Imaging Results: positive See rad report
[2025-10-14] MEDS ORDERED: ACETAMINOPHEN 325 MG TABLET PO PRN (09:45)
[2025-10-14] MEDS ORDERED: ONDANSETRON ODT 4 MG TABLET TL PRN (09:45)
[2025-10-14] MEDS ORDERED: SODIUM CHLORIDE FLUSH 0.9% 10 ML SYRINGE IVP PRN (09:45)
[2025-10-14] MEDS ORDERED: PROCHLORPERAZINE 10 MG/2 ML VIAL IVP PRN (09:45)
[2025-10-14] MEDS: SODIUM CHLORIDE 0.9% 1,000 ML IV SCH (10:10)
[2025-10-14] MEDS: HYDROcod/ACETAM 10 MG/325 MG TABLET PO PRN (10:34)
--- NOTE | 2025-10-14 13:05 | HISTORY & PHYSICAL EXAMINATION ---
Chief Complaint Chief Complaint Chief Complaint: Abdominal pain, pancreatitis of unk etiology History of Present Illness Admitted From Admitted From:: [facility] ED History Obtained From History obtained from: Patient Exam Limitations: None. History of Present Illness HPI Comment/Other: S/s: Pt endorses 8-05/06 "crampy" abd pain since 444 today, pain improved by standing, and provocation by straining, as in bowel movement. Pn related to radiate to back, and steady pain since 444 with slight improvement to 05/06 with analgesics Meds/Allgy Home Medications Ambulatory Orders Medication Instructions Recorded Confirmed No Known Home Medications 06/18/2409/27 Allergies Allergies Allergy/AdvReac Type Severity Reaction Status Date / Time No Known Drug Allergies Allergy Verified 09/04/25 07:59 PFSH Active Problems All Active Problems (Updated 10/14/25 @ 15:39 by Julee Garcia MD) Hypokalemia (Acute) Acute abdominal pain (Acute) Pancreatitis (Acute) Antibody response exam (Acute) Encounter for vitamin deficiency screening (Acute) Screening for colorectal cancer (Acute) Nevus (Acute) Family history of early menopause (Acute) Immunization counseling (Acute) Uterine cramping (Acute) Healthy adult on routine physical examination (Acute) Abnormal auditory perception, unspecified (Acute) Headache (Acute) Raynauds disease (Acute) Eustachian tube dysfunction (Acute) Screening for hyperlipidemia (Acute) Screening for thyroid disorder (Acute) Examination (Acute) Encounter for gynecological examination (general) (routine) with abnormal findings (Acute) Screening mammogram for breast cancer (Acute) Screening for malignant neoplasm of cervix (Acute) Nondisplaced fracture of lateral malleolus of right fibula (Acute) Encounter for screening for cervical cancer (Acute) Ureterolithiasis (Acute) Surgical History Surgical History H/O shoulder surgery right Family History Family History Father CVA (cerebral vascular accident) Maternal grandmother High blood pressure Aunt Colon cancer Social History Social History (Updated 09/04/25 @ 08:01 by Zaida Yeager MA) Smoking Status: Never smoker Second hand tobacco smoke exposure: Yes (current) Do you dip or chew tobacco?: No Do you vape?: No Level: Independent Do you feel safe in your home environment?: Yes History of physical, verbal, emotional, or financial abuse?: No ETOH Use: Wine Frequency: Weekly Number of days/week: 1 Substance Use: denies use POLST Patient has POLST: No Review of Systems Status of ROS: See HPI Exam Exam Vital Signs: Vital Signs x48h Temp Pulse Resp BP Pulse Ox 10/15/25 07:54 36.2 C L 80 16 132/83 H 97 10/15/25 05:07 37.2 C 68 16 128/77 98 Conclusion/Plan Lab Results 10/14/25 06:46 10/14/25 06:46
[2025-10-14] MEDS: MORPHINE 4 MG/ML VIAL IVP PRN (13:11)
[2025-10-14 13:26] LABS: GLUCOSE, URINE (UA) NEGATIVE (NEGATIVE); KETONES,URINE (UA) NEGATIVE (NEGATIVE); OCCULT BLOOD,URINE NEGATIVE (NEGATIVE)
[2025-10-14] MEDS: POTASSIUM CHLOR 10 MEQ/100 ML 10 MEQ/100 ML BAG IV SCH (16:10)
[2025-10-14] MEDS: SODIUM CHLORIDE FLUSH 0.9% 10 ML SYRINGE IVP SCH (16:10)
[2025-10-14] MEDS: ONDANSETRON 4 MG/2 ML VIAL IVP PRN (20:59)
[2025-10-15] MEDS: ENOXAPARIN 40 MG/0.4 ML SYRINGE SUBQ SCH (08:26)
--- NOTE | 2025-10-15 12:47 | Discharge Summary ---
Discharge Summary Admit Date: 10/14/25 Discharge Date: 10/15/25 Discharging Provider: Dr. Julee Garcia MD Primary Care Provider: Kamila De La Rosa Code Status: Attempt Resuscitation Discharge Facility Name: [facility] DIAGNOSES Discharge Diagnoses with Status of Each Condition: (1) Pancreatitis, acute abdominal pain: - The following assessment is for the above two diagnoses: Patient presents with typical abdominal pain with radiation to back. Lipase elevated at 1261. CT abdomen showed Peripancreatic edema and fluid most consistent with pancreatitis. - US abdomen completed with no distension or stones noted. ALT, AST, bilirubin within normal limits. Will trend AM. Patient denies excessive EtOH use. EtOH level negative. No supplements or medications. Triglycerides within normal limits. - Advanced diet as tolerated. Tolerated full liquids well. Will advance likely to GI soft at home. Pain management with Tylenol vs. Motrin. - Nausea management with Zofran as needed. - Less likely gallbladder pancreatitis, alcholic pancreatitis. Less likely autoimmune pancreatitis as well but IgG4 levels ordered. Likely idiopathic pancreatitis. (2) Hypokalemia - Resolved. HPI History of Present Illness: Patient is a 55-year-old female with no past medical history who presents for abdominal pain. Pt endorses 8-6/10 "crampy" abd pain since 444 today, pain improved by standing, and provocation by straining, as in bowel movement. Pn related to radiate to back, and steady pain since 444 with slight improvement to 6/10 with [place] 10/325 x1 dose and nausea better controlled with ondansetron x1 4mg IV. She had two episodes of emesis which she described as non-bilious, non-bloody. She is having difficulty taking deep breaths due to pain. She has had no constipation, no diarrhea. She is passing gas. She has no history of cholelithiasis. She endorses no past medical history. 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 She had early menopause, and a history of ovarian cysts, and abnormal PAPs. She takes no medications. She takes no over the counter supplements. Allergies: Pt denies any allergies to medications, food, OTC, or environmental factors. Surgical history includes R shoulder surgery and ovarian cyst removal. She denies any alcohol, tobacco, recreational drug use. 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 She does have some environmental exposure to chemical irritants, including Windex. She drinks alcohol once a week. She describes this as a glass of wine weekly. CONSULTS | PROCEDURES Consultations: Radiology Procedures: CT Abd/pelvis Abdomen US x2 HOSPITAL COURSE Hospital Course: Pt presented with idiopathic pancreatitis. Pt started on bowel rest and pain/nausea managed medically. PO intake initially limited to chips/sips on 10/14, graduated to clear vegetable broth, coffee, and juice on 10/15 due to improved pain and continued lack of clear etiology. F/u abd US demonstrated no further concern for cholelithiasis at this time, and only positive pertinent lab finding was an isolated (total 1.6, direct 0.25), with no transaminitis or triglyceridemia. Pt symptoms largely resolved, and patient medically cleared for discharge by attending physician. Advised to follow up with PCP in oen week to recheck CMP + bilirubin and follow up on abdominal pain and IGG4 test. ALLERGIES Allergies Allergy/AdvReac Type Severity Reaction Status Date / Time No Known Drug Allergies Allergy Verified 09/04/25 07:59 MEDICATIONS Ambulatory Orders Medication Instructions Recorded Confirmed ondansetron HCl 4 mg tablet 4 mg PO Q8H #12 tabs 10/15 PHYSICAL EXAM AT DISCHARGE Vital Signs: Vital Signs x48h Temp Pulse Resp BP BP Pulse Ox 10/15/25 15:45 36.8 C 77 14 136/82 H 94 10/15/25 14:20 37 C 70 16 161/85 H 98 General Appearance: positive No acute distress and Alert Eyes Bilateral: positive PERRL Respiratory: positive No respiratory distress Cardiovascular: positive Regular rate & rhythm Abdomen: positive No distention and Tenderness (Abd point tenderness improved from initial 8-6/10 on 10/14 to 2-3/10 on discharge 10/15. ); negative Nml bowel sounds (Hypoactive bowel sounds), Guarding, Rebound, Hepatomegaly or Splenomegaly Skin: positive Color nml Extremities: positive No pedal edema Neurologic/Psychiatric: positive Oriented x3 LABS 10/15/25 13:00 10/15/25 13:00 DIAGNOSTIC IMAGING Diagnostic Imaging Results: Final report reviewed and Read independently SEPSIS Current Stage of Sepsis: Ruled out FOLLOW UP Follow Up: Pt advised to follow up if any symptoms persist for greather than 48hrs, worsen, or if any new signs or symptoms appear. PT advised to follow up with PCP and potential GI referral if cause remains unidentified or if problems persist or reappear. Pt coached on a gentle bowel rehab via BRAT diet and food resumption as tolerated. TIME SPENT Time Spent in Discharge (Minutes): 35 Discharge Plan Discharge Patient Disposition: 01 Home, Self Care Condition: Stable Medically Cleared Date:: 10/15/25 Prescriptions: New ondansetron HCl 4 mg tablet 4 mg PO Q8H Qty: 12 0RF Diet: Regular Interventions: Belongings Inventory Last Done: 10/14/25 10:00 Discharge Last Done: 10/15/25 16:00 Discharge Checklist - Nursing Last Done: 10/15/25 16:00 Health Concerns: You presented for abdominal pain. You were diagnosed with acute pancreatitis. As discussed, we do not know the reason why your pancreas got inflamed. Typically, it is due to gallstones or alcohol use, or high calcium or triglycerides, none of which fit the picture for you. As such, we call this idiopathic pancreatitis. - Diet: Resume a regular diet as tolerated, favoring small, low-fat meals. There is no need to delay oral intake; early enteral nutrition is recommended unless pain, nausea, or vomiting persist. I am sending you home with a few Zofran pills for nausea if this persists at home. - Pain Management: Use oral analgesics as needed. Tylenol or motrin over the counter are appropriate at home. - Activity: Gradually return to normal activities as tolerated. Rest as needed, but prolonged bed rest is not required. - Follow-up: Schedule outpatient follow-up to reassess for underlying causes. Further evaluation may include repeat transabdominal ultrasound and/or endoscopic ultrasound to rule out missed biliary disease, microlithiasis, or other etiologies. If recurrent episodes occur, advanced imaging (MRCP) and genetic counseling may be considered. I would like you to follow-up with your primary care provider, Kamila De La Rosa, in the next 1 to 2 weeks. Usually, if you call and let them know you were in the hospital, they try to squeeze you in. I would like them to recheck your liver numbers, as well as your gallbladder numbers. I would also like them to make sure that your abdominal pain is resolving or completely resolved by the time you see them in 1 to 2 weeks. - Prevention of Recurrence: Abstain from alcohol and tobacco, as these increase the risk of recurrence and progression to chronic pancreatitis. - Complications: Watch for symptoms such as persistent abdominal pain, fever, vomiting, jaundice, or signs of infection. Seek medical attention if these occur. Monitor for signs of pancreatic exocrine insufficiency (diarrhea, steatorrhea) or new-onset diabetes, and report these to your provider. - When to Seek Help: Contact your healthcare provider or seek emergency care for severe pain, persistent vomiting, inability to tolerate food or fluids, fever, or jaundice. Print Language: Montenegrin Patient Instructions: Pancreatitis Acute Dc Stand Alone Forms: PCP List Follow-up Care: Kamila De La Rosa ARNP [Primary Care Provider, Family Practice] Vitals documented within 30 minutes of discharge?: Yes
[2025-10-15 13:05] LABS: HCT - HEMATOCRIT 40.7 % (37.0-47.0); HGB - HEMOGLOBIN 12.8 g/dL (12.0-16.0); MEAN PLATELET VOLUME 11.5 fL (7.9-10.8); PLT - PLATELET COUNT 236.0 10^3/uL (130-450); RED CELL DISTRIBUTION WIDTH 13.4 % (12.0-15.0)
[2025-10-15 13:23] LABS: ALT ALANINE AMINOTRANSFERASE 10.0 IU/L (10-60); AST ASPARTATE AMINOTRANSFERASE 21.0 IU/L (10-42); BUN - BLOOD UREA NITROGEN 7.0 mg/dL (6-20); CARBON DIOXIDE - CO2 28.0 mmol/L (21-32); CREATININE 0.6 mg/dL (0.6-1.3); GFR - MDRD 104.0 (>89)
--- NOTE | 2025-10-15 15:29 | Ultrasound Report ---
PROCEDURE: US Abdomen Limited INDICATIONS: increased bilirubin, ?gallstone pancreatitis TECHNIQUE: Real-time focused scanning was performed of the abdomen, with image documentation. COMPARISONS: Ultrasound 10/14/[address] 10/14/2025 FINDINGS: Liver: Liver is normal in size and homogeneous in echotexture. Gallbladder: No gallstones. Gallbladder wall is prominent measuring to 3.5 mm. There is heterogeneity around the gallbladder which may represent fluid or inflammation, possibly tracking from the inflammation around the pancreas seen on CT. Biliary ducts: Intrahepatic bile ducts are non-dilated. Extrahepatic bile duct caliber measures 5.5 mm. The entire length of the common bile duct is seen and appears within normal limits. Distal common bile duct measures 3.4 mm. Normal is 6-7 mm or less in diameter, or 10 mm or less post-cholecystectomy. Pancreas: Visualized portions of the pancreas are sonographically normal. Pancreas is better evaluated on recent CT. Right kidney: Normal in size and echotexture. Right kidney measures 10 cm long. No hydronephrosis or nephrolithiasis. No solid masses. No complex renal cystic lesions which require follow-up. IVC: Intrahepatic inferior vena cava is patent. Miscellaneous: Trace pockets of free fluid near the liver. IMPRESSION: 1. No gallstones are seen. 2. Gallbladder wall is prominent measuring up to 3.5 mm. There is heterogeneity around the gallbladder, may represent fluid or inflammation, possibly tracking from the inflammation around the pancreas seen on recent CT. 3. Trace pockets of free fluid near the liver are noted. 4. Pancreas appears normal by ultrasound, however the pancreas is better evaluated on recent CT. Reviewed by: Kalpesh Kumari MD on 10/15/2025 3:25 PM PST Approved by: Kalpesh Kumari MD on 10/15/2025 3:25 PM PST Station ID: [id number]
[2025-10-15 15:49] VITALS: TEMP 98.2; O2SAT 94
[2025-10-15 17:31] VITALS: BP 130/89
== END 2025-10-15 16:31 | disposition home or self-care (01) ==
LOC: MS2 06:16 → ED 06:16 → MS2 09:55
PROVIDERS: ADMIT Internal Medicine; ATTEND Internal Medicine
DX: E87.6 Hypokalemia; K85.90 Acute pancreatitis without necrosis or infection, unspecified